=== PATIENT | female | born 2000 | race Hispanic/Latino ===

== ENCOUNTER 2024-11-16 13:28 | Emergency (ER) | payer BC ==
[~2024-11-16] VITALS: Ht 167.6 cm; Wt 97.5 kg
--- NOTE | 2024-11-16 14:23 | ERN ---
ED Note History of Present Illness Stated Complaint: CRAMPING Chief Complaint: Abdominal Pain in Time Seen by MD: 13:36 Dictation: 24-year-old female with a history of PCOS presents to the ED for evaluation of abdominal cramping onset last night. Patient reports she tested positive with a not home yesterday. Patient denies any vaginal bleeding or other associated symptoms at this time. LMP-October 17. A1. Patient just moved to the [place] and does not have an OBGYN or PCP. Allergies: Coded Allergies: No Known Allergies (Unverified Allergy, Unknown, 11/16/24) Past Medical History Past Medical History: Migraines Additional Past Medical Hx: PCOS Surgical History: None LMP: Oct 12, 2024 : 2 Para: 0 Review of System Dictation Constitutional: Negative for fever,chills, and weight loss Eyes: Negative for injury, pain,redness, and discharge ENT: Negative for injury,pain or swelling Cardiovascular: Negative for chest pain, palpitations, and edema Respiratory: Negative for shortness of breath, cough, and wheezing, Abdomen/GI: Positive for abdominal cramping negative for nausea, vomiting, diarrhea, and constipation Back: Negative for injury and pain : Negative for injury, bleeding and discharge MS/Extremity: Negative for injury and deformity Skin: Negative for rash, and discoloration Neuro: Negative for headache, weakness, numbness, tingling, and seizure Psych: Negative for suicide ideation, homicidal ideation, and hallucinations Initial Vital Sign VS Vital Signs Date Time Temp Pulse Resp B/P (MAP) Pulse Ox O2 Delivery O2 Flow Rate FiO2 11/16/24 14:07 98.4 80 16 158/94 99 Room Air 0 Physical Exam Dictation General: awake, alert, NAD Head/Face: Normocephalic, atraumatic Eyes: PERRL, EOMI, vision at baseline ENT: oral cavity clear, TMs clear, no signs of infection Neck: Trachea midline, supple, no nuchal rigidity Cardiovascular: RRR, normal S1/S2, No MRGs, no JVD Respiratory: CTAB, no respiratory distress, No rales or wheezes Abdomen: Soft, non-tender, non-distended, normal bowel sounds, no guarding or rebound. Skin: Warm, dry, normal turgor, no rash MS/Extremity: Pulses equal, no cyanosis, neurovascular intact, FROM Neuro: COAx4, GCS 15, strength 5/5, CN 2-12 intact, normal cerebellar exam, normal gait, Psych: Normal behavior, mood, and affect normal Results (Laboratory/Radiology) Laboratory/Radiology Laboratory Tests Test 11/16/24 14:27 11/16/24 14:28 Urine Color LIGHT-YELLOW (YELLOW) Urine Appearance CLOUDY (CLEAR) H Urine pH 6.0 (5.0-8.0) Urine Specific [place] 1.015 (1.001-1.031) Urine Protein NEGATIVE mg/dL (NEGATIVE) Urine Glucose (UA) NEGATIVE mg/dL (NEGATIVE) Urine Ketones NEGATIVE mg/dL (NEGATIVE) Urine Occult Blood NEGATIVE (NEGATIVE) Urine Nitrate NEGATIVE (NEGATIVE) Urine Bilirubin NEGATIVE mg/dL (NEGATIVE) Urine Urobilinogen 0.2 mg/dL (0.2-1.0) Urine Leukocyte Esterase 25 Rober/uL (NEGATIVE) H White Blood Count 6.9 K/uL (4.8-10.8) Red Blood Count 4.72 MIL/uL (4.00-5.50) Hemoglobin 13.9 g/dL (12.0-16.0) Hematocrit 42.5 % (36-48) Mean Corpuscular Volume 90.0 fL (79-99) Mean Corpuscular Hemoglobin 29.4 pg (27.0-33.0) Mean Corpuscular Hemoglobin Concent 32.7 g/dL (32.0-36.0) Red Cell Distribution Width 12.9 % (11.0-15.5) Platelet Count 293 K/uL (130-400) Mean Platelet Volume 9.7 fL (7.5-10.5) Immature Granulocyte % (Auto) 0.3 % (0-1) Neutrophils (%) (Auto) 60.2 % (40.0-77.0) Lymphocytes (%) (Auto) 34.7 % (21.0-51.0) Monocytes (%) (Auto) 4.1 % (3.0-13.0) Eosinophils (%) (Auto) 0.4 % (0.0-8.0) Basophils (%) (Auto) 0.3 % (0.0-5.0) Neutrophils # (Auto) 4.2 K/uL (1.8-7.7) Lymphocytes # (Auto) 2.4 K/uL (1.0-4.8) Monocytes # (Auto) 0.3 K/uL (0.1-1.0) Eosinophils # (Auto) 0.03 K/uL (0.00-0.70) Basophils # (Auto) 0.02 K/uL (0.00-0.20) Absolute Immature Granulocyte (auto 0.02 K/uL (0-1) Nucleated Red Blood Cells 0.0 % (0.0-0.19) Sodium Level 138 mmol/L (136-145) Potassium Level 3.8 mmol/L (3.5-5.1) Chloride Level 102 mmol/L (101-111) Carbon Dioxide Level 30 mmol/L (21-32) Blood Urea Nitrogen 7 mg/dL (7-18) Creatinine 0.9 mg/dL (0.5-1.0) Glomerular Filtration Rate Calc 92 mL/min (>90) Random Glucose 130 mg/dL (70-105) H Total Calcium 9.1 mg/dL (8.5-10.1) Human Chorionic Gonadotropin, Quant 12 mIU/mL (0-5) H Labs Reviewed?: Yes ED Course ED Course Orders Procedure Category Date Status Time Hcg,Quantitative LAB 11/16/24 Complete 14:13 Urinalysis Profile LAB 11/16/24 In Process 14:13 ,Urine Test LAB 11/16/24 In Process 14:13 Cbc With Differential LAB 11/16/24 Complete 14:13 Basic Metabolic Panel LAB 11/16/24 Complete 14:13 Testing, LAB 11/16/24 Logged Serum Hcg 15:12 Vital Signs Date Time Temp Pulse Resp B/P (MAP) Pulse Ox O2 Delivery O2 Flow Rate FiO2 11/16/24 14:07 98.4 80 16 158/94 99 Room Air 0 Medical Decision Making MDM MDM: Differential diagnosis: 1st trimester , abdominal cramping, threatened Risk of complication and/or morbidity or mortality of patient management: None Medications-Per medication reconciliation Need for hospitalization: Patient does not meet criteria for hospitalization. Need for emergency major/minor surgery: No There are no social concerns with this patient. I independently interpreted the test that were performed, results were reviewed by me and considered findings on radiology if ordered. DX & DISP Disposition: Discharge Departure Impression: Primary Impression: Threatened Condition: Stable Referrals: SELF,REFERRAL (PCP) GABE BIRD MD Nov 16, 2024 14:23
[2024-11-16 14:38] LABS: BASOPHILS # (AUTO) 0.02 K/uL (0.00-0.20); BASOPHILS % (AUTO) 0.3 % (0.0-5.0); EOSINOPHILS # (AUTO) 0.03 K/uL (0.00-0.70); EOSINOPHILS % (AUTO) 0.4 % (0.0-8.0); HEMATOCRIT 42.5 % (36-48); IMMATURE GRANULOCYTE ABSOLUTE 0.02 K/uL (0-1); LYMPHOCYTES # (AUTO) 2.4 K/uL (1.0-4.8); LYMPHOCYTES % (AUTO) 34.7 % (21.0-51.0); MEAN CORPUSCULAR HEMOGLOBIN 29.4 pg (27.0-33.0); MEAN CORPUSCULAR HGB CONC 32.7 g/dL (32.0-36.0); MONOCYTES # (AUTO) 0.3 K/uL (0.1-1.0); MONOCYTES % (AUTO) 4.1 % (3.0-13.0); NEUTROPHILS # (AUTO) 4.2 K/uL (1.8-7.7); NEUTROPHILS % (AUTO) 60.2 % (40.0-77.0); PLATELET COUNT (AUTO) 293 K/uL (130-400); RED BLOOD CELL COUNT(AUTO) 4.72 MIL/uL (4.00-5.50); RED CELL DISTRIBUTION WIDTH 12.9 % (11.0-15.5); WHITE BLOOD COUNT (AUTO) 6.9 K/uL (4.8-10.8)
[2024-11-16 14:47] LABS: CREATININE 0.9 mg/dL (0.5-1.0); POTASSIUM 3.8 mmol/L (3.5-5.1)
[2024-11-16 14:56] LABS: APPEARANCE,URINE CLOUDY (CLEAR); BILIRUBIN,URINE NEGATIVE (NEGATIVE); COLOR,URINE LIGHT-YELLOW (YELLOW); GLUCOSE, URINE (UA) NEGATIVE (NEGATIVE); KETONES,URINE NEGATIVE (NEGATIVE); LEUKOCYTE ESTERASE ,URINE 25 Leu/uL (NEGATIVE); NITRATE,URINE NEGATIVE (NEGATIVE); OCCULT BLOOD,URINE NEGATIVE (NEGATIVE); PROTEIN,URINE NEGATIVE (NEGATIVE); UROBILINOGEN,URINE 0.2 mg/dL (0.2-1.0)
[2024-11-16 14:59] LABS: ADD UA MICROSCOPIC YES
[2024-11-16 15:00] LABS: BACTERIA,URINE RARE /HPF (None Seen); MUCUS,URINE RARE LPF (None Seen); SQUAMOUS EPITHELIAL CELL,UR MOD /HPF (0-2)
[2024-11-16 15:42] LABS: HCG,QUALITATIVE URINE NEGATIVE (NEGATIVE)
[2024-11-16 16:54] VITALS: BP 144/88; PULSE 90; RESP 16; TEMP 98.5; O2SAT 100
== END 2024-11-16 17:01 | disposition home or self-care (01) ==
LOC: EDH 13:28
DX: O20.0 Threatened abortion (principal); Z3A.00 Weeks of gestation of pregnancy not specified
CPT/HCPCS: 36415; 80048; 81001; 81025; 84702; 84703; 85025; 99283

== ENCOUNTER 2024-11-17 13:03 | Emergency (ER) | payer BC ==
[~2024-11-17] VITALS: Ht 167.6 cm; Wt 97.5 kg
--- NOTE | 2024-11-17 13:44 | ERN ---
General Stated Complaint: PER PT POSSIBLE MISCARRIAGE Time Seen by MD: 13:05 Source: patient History of Present Illness Initial Comments Patient is a 24-year-old female coming in to be evaluated for vaginal spotting. Patient was recently evaluated a couple of hours ago but states that she decided to come in low sooner for further evaluation. Patient states he had a quantitative hCG of 12 on last visit and was advised to follow up with PCP for further evaluation. Allergies: Coded Allergies: No Known Allergies (Unverified Allergy, Unknown, 11/16/24) Past Medical History Past Medical History: Migraines Medical History Other: PCOS Past Surgical History: None Female( History) : 2 Para: 0 ROS Dictation CONSTITUTIONAL: No chills, no fever, no weakness, no diaphoresis, no malaise. HEAD/FACE: No signs of trauma. EENT: No eye pain, no blurred vision, no tearing, no double vision, no ear pain, no ear discharge, no nose pain, no nasal congestion, no throat pain, no throat swelling, no mouth pain. RESPIRATORY: No cough, no orthopnea, no SOB, no stridor, no wheezing. CARDIOVASCULAR: No chest pain, no edema, no palpitations, no syncope. GASTROINTESTINAL/ABDOMINAL: No abdominal pain, no constipation, no diarrhea, no nausea, no vomiting. GENITOURINARY: No abnormal discharge, no dysuria, no frequent urination, no hematuria. No complaints of pain in the genitals. MUSCULOSKELETAL: No back pain, no gout, no joint pain, no joint swelling, no muscle pain, no muscle stiffness, no neck pain. INTEGUMENTARY: No change in color, no change in hair/nails, no dryness, no lesion, no lumps, no rash. NEUROLOGICAL/PSYCH: No anxiety, not depressed, no emotional problem, no headache, no numbness, no pre-existing deficit, no history of seizures, no tremors, no weakness. HEMATOLOGIC/LYMPHATIC: Not anemic, no history of blood clots, no apparent bleeding, no bruising, glands not swollen. All Systems Negative, Except as Noted. Physical Exam Physical Exam Dictation VITAL SIGNS: Reviewed. GENERAL APPEARANCE: Alert, oriented x3, no acute distress, obese. HEAD AND FACE: Non-traumatic. EYES: PERRL, pink conjunctivas, eyelid no trauma, anterior chamber clear. EARS: Pinnas intact and no signs of trauma or erythema. Ear canals clear and no discharge. TMs no erythema. NOSE: No discharge, no bleeding. OROPHARYNX: Mouth normal, teeth no caries, tongue pink. Pharynx clear, no erythema. Tonsils no exudates, no abscesses noted. Mucous membrane moist. NECK: Supple, non-tender, no thyromegaly, no masses, no JVD, no bruits. BREAST: Deferred. CHEST: No tenderness, no crepitus, no paradoxical movement, no retractions. LUNGS: Clear, well-ventilated, symmetric, no rales, no wheezing, no rhonchi, no stridor, good breath sounds bilaterally. HEART: Regular rate, regular rhythm, no murmur, no gallops. VASCULAR: No peripheral edema. ABDOMEN: Soft, positive bowel sounds, nondistended, no guarding, nontender, no rebound, no masses no hepatomegaly, no splenomegaly, no Quinn's sign, no hernias. RECTAL: Deferred. GENITAL: Deferred. NEUROLOGICAL: Normal speech, gross motor function intact, gross sensory function intact. MUSCULOSKELETAL: Neck nontender, full range of motion, back nontender, full range of motion. EXTREMITIES: Nontender, full range of motion. SKIN: Color pink, dry, no turgor, no rash, no lacerations, no abrasions, no contusions. LYMPHATICS: Deferred. Results Laboratory and Microbiology Labs Reviewed?: Yes MDM Patient is a 20-year-old female coming in to be evaluated for spotting. Per patient she was recently evaluated but states she has not followed up with her OB. She states he was evaluated a couple hours ago but he was here because she missed in his should what the ER physician told her. Per her recollection she was told that if she continued spotting to come back as soon as possible. Patient states that her spotting has decreased substantially. Patient will be referred to high-risk OB since this is her 2nd threatened miscarriage. ED Course Vital Signs Date Time Temp Pulse Resp B/P (MAP) Pulse Ox O2 Delivery O2 Flow Rate FiO2 11/17/24 13:44 98.2 82 16 162/95 Room Air 0 DX & DISP Disposition: Discharge Departure Impression: Primary Impression: Threatened Condition: Stable Additional Instructions: FOLLOW-UP WITH PRIMARY CARE PROVIDER IN 1 TO 2 DAYS. TAKE MEDICATIONS DIRECTED HERE IN THE EMERGENCY ROOM. OKAY TO CONTINUE HOME MEDICATIONS UNLESS OTHERWISE DISCUSSED DURING YOUR VISIT IN THE EMERGENCY ROOM TODAY. RETURN TO YOUR NEAREST EMERGENCY ROOM IF SYMPTOMS WORSEN OR IF THERE IS NO IMPROVEMENT. CALL 911 IF YOU NEED IMMEDIATE ASSISTANCE. TAKE TYLENOL [id number] NEEDED AND IF NO CONTRAINDICATIONS ARE PRESENT. INCREASE ORAL HYDRATION. A WOUND CULTURE OR URINE CULTURE WAS ORDERED HERE IN THE EMERGENCY ROOM DEPARTMENT PLEASE FOLLOW-UP WITH PRIMARY CARE PROVIDER AND ADVISE THEM TO GET REPEAT PORTS FROM OUR FACILITY. IF YOU HAD ANY JEY WRAP/SPLINTS THAT WERE APPLIED HERE, PLEASE DO NOT REMOVE THEM UNTIL YOU SEE YOUR PRIMARY CARE OR SPECIALTY. REFERRALS: Vanda Patel Md OBKATHIE [address] [facility] [address], [facility] [id number] Referrals: SELF,REFERRAL (PCP) Vanda REZA [address] [facility] [address], [facility] [id number] ROSEMARY MUIR MD Time of Disposition: 15:01 JENNY ARROYO MD Nov 17, 2024 13:44
[2024-11-17 15:45] VITALS: BP 147/89; PULSE 77; RESP 18; TEMP 98; O2SAT 96
--- NOTE | 2024-11-17 15:46 | NUR ---
no heart tone missed
== END 2024-11-17 15:50 | disposition home or self-care (01) ==
LOC: EDH 13:03
DX: O20.0 Threatened abortion (principal); Z3A.00 Weeks of gestation of pregnancy not specified
CPT/HCPCS: 99282; 99283

== ENCOUNTER 2025-08-04 11:33 | Emergency (ER) | payer BC ==
[~2025-08-04] VITALS: Ht 167.6 cm; Wt 76.2 kg
[2025-08-04 11:58] LABS: IMMATURE GRANULOCYTE ABSOLUTE 0.02 K/uL (0-1); NUCLEATED RED BLOOD CELLS 0.0 % (0.0-0.19); PLATELET COUNT (AUTO) 358 K/uL (130-400); RED BLOOD CELL COUNT(AUTO) 4.95 MIL/uL (4.00-5.50); RED CELL DISTRIBUTION WIDTH 12.8 % (11.0-15.5); WHITE BLOOD COUNT (AUTO) 9.9 K/uL (4.8-10.8)
[2025-08-04] MEDS: 0.9%NACL 1000ML 1,000 ML IV SCH (12:08)
[2025-08-04 12:19] LABS: ASPARTATE AMINOTRANSFERASE 19.0 U/L (10-37); CREATININE 0.9 mg/dL (0.5-1.0); GLOMERULAR FILTR. RATE CALC 91.0 mL/min (>90); GLUCOSE,RANDOM 111.0 mg/dL (70-105); HCG,QUANTITATIVE 0.0 mIU/mL (0-5); SODIUM SERUM 140.0 mmol/L (136-145); TOTAL PROTEIN, SERUM 8.4 g/dL (6.0-8.3); UREA NITROGEN, BLOOD 11.0 mg/dL (7-18)
[2025-08-04 12:30] LABS: APPEARANCE,URINE CLEAR (CLEAR); GLUCOSE, URINE (UA) NEGATIVE (NEGATIVE); LEUKOCYTE ESTERASE ,URINE 75 Leu/uL (NEGATIVE); NITRATE,URINE NEGATIVE (NEGATIVE); OCCULT BLOOD,URINE +- (TRACE) (NEGATIVE)
[2025-08-04 12:40] LABS: ADD UA MICROSCOPIC YES
[2025-08-04 12:44] LABS: SQUAMOUS EPITHELIAL CELL,UR MOD /HPF (0-2)
--- NOTE | 2025-08-04 14:20 | HMCIMG ---
EXAM: CT Abdomen and Pelvis Without IV contrast CLINICAL HISTORY: right flank pain TECHNIQUE: Axial computed tomography images of the abdomen and pelvis without intravenous contrast. CONTRAST: No IV contrast. COMPARISON: None provided. FINDINGS: LUNG BASES: The lung bases appear clear. No pleural effusions are seen. LIVER: Unremarkable. GALLBLADDER AND BILE DUCTS: The gallbladder appears within normal limits. No radioopaque gallstones are seen. No biliary ductal dilatation is evident. PANCREAS: Unremarkable. SPLEEN: Unremarkable. ADRENAL GLANDS: Unremarkable. KIDNEYS, URETERS, AND BLADDER: The kidneys appear within normal limits. Multiple small non-obstructive calculi in both kidneys, the largest in the right kidney measures approximately 2.4 mm The largest in the left kidney measures approximately 2.3 mm Mild hydronephrosis on the right side STOMACH AND BOWEL: Unremarkable appearance of the stomach and bowel. No evidence of bowel obstruction. No evidence suggesting enteritis or colitis. APPENDIX: No evidence of acute appendicitis on CT examination. PERITONEUM: No free fluid. No free air. LYMPH NODES: No lymphadenopathy is evident. REPRODUCTIVE: Iso to subtle hyperdense areas in the left ovary measure approx 3.2 x 3 cm, Advise USG correlation VASCULATURE: No evidence of abdominal aortic aneurysm. BONES: No aggressive appearing osseous lesion. No acute osseous pathology evident. IMPRESSION: 1. Multiple small non-obstructive renal calculi bilaterally with mild right-sided hydronephrosis. 2. Left ovarian lesion measuring 3.2 x 3 cm, recommend ultrasound correlation. /[place]
--- NOTE | 2025-08-04 14:27 | ERN ---
ED Note History of Present Illness Stated Complaint: RT ABD PAIN Chief Complaint: Abdominal Pain Time Seen by MD: 11:35 Time Seen by Midlevel: 11:36 Dictation: 25-year-old female with no past medical history coming in with complaints of flank pain started on the left and nose in the right side radiating to the right lower quadrant. Patient states it has been going on for the last couple of days with nausea. Denies any vomiting fever, and states she does have some dysuria. States she has been told in the past that she has a very small kidney stones. Allergies: Coded Allergies: No Known Allergies (Unverified Allergy, Unknown, 11/16/24) Past Medical History Past Medical History: Constipation, Depression, Migraines, Ovarian Cyst Additional Past Medical Hx: PCOS Surgical History: None LMP: Jul 21, 2025 : 2 Para: 0 Review of System Dictation Constitutional: Negative for fever,chills, and weight loss Eyes: Negative for injury, pain,redness, and discharge ENT: Negative for injury,pain or swelling Cardiovascular: Negative for chest pain, palpitations, and edema Respiratory: Negative for shortness of breath, cough, and wheezing, Abdomen/GI: Negative for abdominal pain, nausea, vomiting, diarrhea, and constipation Back: Negative for injury and pain : Dysuria, right flank pain MS/Extremity: Negative for injury and deformity Skin: Negative for rash, and discoloration Neuro: Negative for headache, weakness, numbness, tingling, and seizure Psych: Negative for suicide ideation, homicidal ideation, and hallucinations Review of Systems: was completed Initial Vital Sign VS Vital Signs Date Time Temp Pulse Resp B/P (MAP) Pulse Ox O2 Delivery O2 Flow Rate FiO2 08/04/25 11:35 99.0 84 18 162/96 100 Room Air 0 08/04/25 12:20 21 Physical Exam Dictation General: awake, alert, NAD Head/Face: Normocephalic, atraumatic Eyes: PERRL, EOMI, vision at baseline ENT: oral cavity clear, TMs clear, no signs of infection Neck: Trachea midline, supple, no nuchal rigidity Cardiovascular: RRR, normal S1/S2, No MRGs, no JVD Respiratory: CTAB, no respiratory distress, No rales or wheezes Abdomen: Soft, non-tender, non-distended, normal bowel sounds, no guarding or rebound. Skin: Warm, dry, normal turgor, no rash MS/Extremity: Pulses equal, no cyanosis, neurovascular intact, FROM Neuro: COAx4, GCS 15, strength 5/5, CN 2-12 intact, normal cerebellar exam, n ormal gait, Psych: Normal behavior, mood, and affect normal Results (Laboratory/Radiology) Laboratory/Radiology Laboratory Tests Test 08/04/25 11:50 08/04/25 12:13 White Blood Count 9.9 K/uL (4.8-10.8) Red Blood Count 4.95 MIL/uL (4.00-5.50) Hemoglobin 14.5 g/dL (12.0-16.0) Hematocrit 42.9 % (36-48) Mean Corpuscular Volume 86.7 fL (79-99) Mean Corpuscular Hemoglobin 29.3 pg (27.0-33.0) Mean Corpuscular Hemoglobin Concent 33.8 g/dL (32.0-36.0) Red Cell Distribution Width 12.8 % (11.0-15.5) Platelet Count 358 K/uL (130-400) Mean Platelet Volume 9.3 fL (7.5-10.5) Immature Granulocyte % (Auto) 0.2 % (0-1) Neutrophils (%) (Auto) 70.9 % (40.0-77.0) Lymphocytes (%) (Auto) 23.6 % (21.0-51.0) Monocytes (%) (Auto) 4.5 % (3.0-13.0) Eosinophils (%) (Auto) 0.6 % (0.0-8.0) Basophils (%) (Auto) 0.2 % (0.0-5.0) Neutrophils # (Auto) 7.0 K/uL (1.8-7.7) Lymphocytes # (Auto) 2.4 K/uL (1.0-4.8) Monocytes # (Auto) 0.5 K/uL (0.1-1.0) Eosinophils # (Auto) 0.06 K/uL (0.00-0.70) Basophils # (Auto) 0.02 K/uL (0.00-0.20) Absolute Immature Granulocyte (auto 0.02 K/uL (0-1) Nucleated Red Blood Cells 0.0 % (0.0-0.19) Sodium Level 140 mmol/L (136-145) Potassium Level 4.3 mmol/L (3.5-5.1) Chloride Level 103 mmol/L (101-111) Carbon Dioxide Level 30 mmol/L (21-32) Blood Urea Nitrogen 11 mg/dL (7-18) Creatinine 0.9 mg/dL (0.5-1.0) Glomerular Filtration Rate Calc 91 mL/min (>90) Random Glucose 111 mg/dL (70-105) H Total Calcium 9.2 mg/dL (8.5-10.1) Total Bilirubin 0.3 mg/dL (0.2-1.0) Direct Bilirubin 0.1 mg/dL (0.0-0.3) Aspartate Amino Transf (AST/SGOT) 19 U/L (10-37) Alanine Aminotransferase (ALT/SGPT) 29 U/L (12-78) Alkaline Phosphatase 87 U/L (50-136) Total Protein 8.4 g/dL (6.0-8.3) H Albumin 4.2 g/dL (3.5-5.0) Lipase 185 U/L (16-77) H Human Chorionic Gonadotropin, Quant 0 mIU/mL (0-5) Urine Color LIGHT-YELLOW (YELLOW) Urine Appearance CLEAR (CLEAR) Urine pH 8.0 (5.0-8.0) Urine Specific [place] 1.016 (1.001-1.031) Urine Protein NEGATIVE mg/dL (NEGATIVE) Urine Glucose (UA) NEGATIVE mg/dL (NEGATIVE) Urine Ketones NEGATIVE mg/dL (NEGATIVE) Urine Occult Blood +- (TRACE) (NEGATIVE) H Urine Nitrate NEGATIVE (NEGATIVE) Urine Bilirubin NEGATIVE mg/dL (NEGATIVE) Urine Urobilinogen 0.2 mg/dL (0.2-1.0) Urine Leukocyte Esterase 75 Rober/uL (NEGATIVE) H Urine RBC 11-25 /HPF (0-1) H Urine WBC 11-25 /HPF (0-1) H Urine Squamous Epithelial Cells MOD /HPF (0-2) Urine Bacteria Rare /HPF (None Seen) Labs Reviewed?: Yes Ultrasound Comment: [place] [id number] [place] [address] IMAGING REPORT Signed PATIENT: ARCENIO WONG MR#: [id number] : 2000 SEX: F AGE: 25 LOCATION: [facility] ORDER 26 STATUS: REG ER REPORT#: [id number] SERVICE 24 REASON: left ovarian lesion on ct scan ORDERING PHYSICIAN: MARCUS HALEY CNP PROCEDURE: PELVCOMP - US PELVIC NON-OB COMP EXAM: US Pelvis, Complete Transvaginal and Transabdominal COMPARISON: None provided. CLINICAL HISTORY: left ovarian lesion on ct scan TECHNIQUE: Transvaginal and transabdominal pelvic ultrasound (complete) with image documentation. FINDINGS: ENDOMETRIUM: Normal thickness. Endometrial thickness is 2 mm UTERUS/CERVIX: The uterus appears within normal limits. No uterine fibroid or other mass evident. RIGHT OVARY: Normal Doppler flow. No abnormal mass. LEFT OVARY: Normal Doppler flow. No abnormal mass. FREE FLUID: No free fluid. IMPRESSION: Unremarkable pelvic ultrasound. /[place] DICTATED BY: MONICA ORLANDO MD DATE: 08/04/251738 ELECTRONICALLY SIGNED BY: MONICA ORLANDO MD DATE: 08/04/251738 CT Scan Comment: [place] [address] IMAGING REPORT Signed PATIENT: ARCENIO WONG MR#: [id number] : 2000 SEX: F AGE: 25 LOCATION: [facility] ORDER 1305 STATUS: REG ER REPORT#: [id number] SERVICE 130 REASON: right flank pain ORDERING PHYSICIAN: MARCUS HALEY CNP PROCEDURE: ABD PEL WO - CT ABDOMEN/PELVIS W/O CONTRAST EXAM: CT Abdomen and Pelvis Without IV contrast CLINICAL HISTORY: right flank pain TECHNIQUE: Axial computed tomography images of the abdomen and pelvis without intravenous contrast. CONTRAST: No IV contrast. COMPARISON: None provided. FINDINGS: LUNG BASES: The lung bases appear clear. No pleural effusions are seen. LIVER: Unremarkable. GALLBLADDER AND BILE DUCTS: The gallbladder appears within normal limits. No radioopaque gallstones are seen. No biliary ductal dilatation is evident. PANCREAS: Unremarkable. SPLEEN: Unremarkable. ADRENAL GLANDS: Unremarkable. KIDNEYS, URETERS, AND BLADDER: The kidneys appear within normal limits. Multiple small non-obstructive calculi in both kidneys, the largest in the right kidney measures approximately 2.4 mm The largest in the left kidney measures approximately 2.3 mm Mild hydronephrosis on the right side STOMACH AND BOWEL: Unremarkable appearance of the stomach and bowel. No evidence of bowel obstruction. No evidence suggesting enteritis or colitis. APPENDIX: No evidence of acute appendicitis on CT examination. PERITONEUM: No free fluid. No free air. LYMPH NODES: No lymphadenopathy is evident. REPRODUCTIVE: Iso to subtle hyperdense areas in the left ovary measure approx 3.2 x 3 cm, Advise USG correlation VASCULATURE: No evidence of abdominal aortic aneurysm. BONES: No aggressive appearing osseous lesion. No acute osseous pathology evident. IMPRESSION: 1. Multiple small non-obstructive renal calculi bilaterally with mild right-sided hydronephrosis. 2. Left ovarian lesion measuring 3.2 x 3 cm, recommend ultrasound correlation. /[place] DICTATED BY: LASHELL WEBB Jr., MD DATE: 08/04/251519 ELECTRONICALLY SIGNED BY: LASHELL WEBB Jr., MD DATE: 08/04/251519 ED Course ED Course Orders Procedure Category Date Status Time Cbc With Differential LAB 08/04/25 Complete 11:45 Basic Metabolic Panel LAB 08/04/25 Complete 11:45 Urinalysis Profile LAB 08/04/25 Complete 11:45 Hepatic Function Panel LAB 08/04/25 Complete 11:45 Lipase LAB 08/04/25 Complete 11:45 0.9%Nacl 1000ml (Ns PHA 08/04/25 In Process 1000ml) 12:00 Ondansetron 4mg Inj PHA 08/04/25 Complete (Zofran 4mg Inj) 12:00 Hcg,Quantitative LAB 08/04/25 Complete 11:45 Morphine 2mg Syg PHA 08/04/25 Complete (Morphine 2mg Syg) 12:00 Culture Urine NEGAR 08/04/25 In Process 12:40 Ketorolac PHA 08/04/25 Complete Tromethamine 30mg/Ml 13:00 Ct Abdomen/Pelvis W/O CT 08/04/25 Resulted Contrast 13:04 Us Pelvic Non-Ob Comp US 08/04/25 Resulted 14:25 Morphine 4mg Syg PHA 08/04/25 Complete (Morphine 4mg Syg) 16:00 Ceftriaxone 1g Vial PHA 08/04/25 Complete (Rocephine 1g Inj) 16:30 Current Medications Medications (Trade) Dose Ordered Sig/Jeevan Route PRN Reason Start Time Stop Time Status Last Admin Dose Admin Ceftriaxone Sodium (ROCEphine 1G INJ) 1 gm ONCE ONCE IVPB 08/04/25 16:30 08/04/25 16:31 DC 08/04/25 16:12 Ketorolac Tromethamine (toRADol) 30 mg ONCE ONCE IVP 08/04/25 13:00 08/04/25 13:01 DC 08/04/25 12:51 Morphine Sulfate (morPHINE 2MG SYG) 2 mg ONCE ONCE IVP 08/04/25 12:00 08/04/25 12:01 DC 08/04/25 12:05 Morphine Sulfate (morPHINE 4MG SYG) 4 mg ONCE ONCE IVP 08/04/25 16:00 08/04/25 16:01 DC 08/04/25 16:12 Ondansetron HCl (zoFRAN 4MG INJ) 4 mg ONCE ONCE IVP 08/04/25 12:00 08/04/25 12:01 DC 08/04/25 12:05 Sodium Chloride 1,000 ml @ 100 mls/hr Q10H IV 08/04/25 12:00 09/03/25 11:59 08/04/25 12:08 Vital Signs Date Time Temp Pulse Resp B/P (MAP) Pulse Ox O2 Delivery O2 Flow Rate FiO2 08/04/25 12:20 98.4 67 25 141/82 100 Room Air* 0 21 08/04/25 11:35 99.0 84 18 162/96 100 Room Air 0 Medical Decision Making MDM MDM: 25-year-old female with no past medical history coming in with complaints of flank pain started on the left and nose in the right side radiating to the right lower quadrant. Patient states it has been going on for the last couple of days with nausea. Denies any vomiting fever, and states she does have some dysuria. States she has been told in the past that she has a very small kidney stones. Differential diagnosis: Kidney stone, urinary tract infection, pyelonephritis, appendicitis, ectopic Rationale: Tests considered and ordered secondary to shared decision making include: Previous outside records reviewed: Old ER visits. Risk of complication and/or morbidity or mortality of patient management: None Medications-Per medication reconciliation Need for hospitalization: Patient does not meet criteria for hospitalization. Need for emergency major/minor surgery: No There are no social concerns with this patient. Prescription drug management Prescriptions will include symptomatic care Patient's prior external medical records from other ER visits were reviewed by me as indicated. Prior testing and results from previous visits were reviewed. Prior tests were taken into account with medical decision making and resource utilization, independent historian/historians were used to obtain complete medical history. I independently interpreted the test that were performed, results were reviewed by me and considered findings on radiology if ordered. Medical management and examination interpretation discussions were had by me with other qualified healthcare professionals as indicated for the patient's care. DX & DISP Disposition: AMA Departure Impression: Primary Impression: Cystitis, acute hemorrhagic Additional Impressions: Kidney calculus, Renal colic, bilateral Condition: Stable Scripts Phenazopyridine HCl (Pyridium) 200 Mg Tablet 200 MG PO TID for painful urination, #10 TAB 0 Refills Prov: MARCUS HALEY CNP 08/04/25 Ketorolac Tromethamine (Ketorolac Tromethamine) 10 Mg Tablet 1 TAB PO Q6HPRN PRN for pain for 5 Days, #20 TAB 0 Refills Prov: MARCUS HALEY CNP 08/04/25 Nitrofurantoin Monohyd/M-Cryst (Macrobid 100 mg Capsule) 100 Mg Capsule 1 CAP PO BID for 7 Days, #14 CAP 0 Refills Prov: MARCUS HALEY CNP 08/04/25 Additional Instructions: Follow up with your primary care provider. Return to the hospital if you develop any fever, back pain, nausea or vomiting. Referrals: SELF,REFERRAL (PCP) Time of Disposition: 16:57 I have reviewed the case, and I agree with, Diagnosis and Plan MARCUS AHLEY CNP Aug 04, 2025 14:27
--- NOTE | 2025-08-04 16:40 | HMCIMG ---
EXAM: US Pelvis, Complete Transvaginal and Transabdominal COMPARISON: None provided. CLINICAL HISTORY: left ovarian lesion on ct scan TECHNIQUE: Transvaginal and transabdominal pelvic ultrasound (complete) with image documentation. FINDINGS: ENDOMETRIUM: Normal thickness. Endometrial thickness is 2 mm UTERUS/CERVIX: The uterus appears within normal limits. No uterine fibroid or other mass evident. RIGHT OVARY: Normal Doppler flow. No abnormal mass. LEFT OVARY: Normal Doppler flow. No abnormal mass. FREE FLUID: No free fluid. IMPRESSION: Unremarkable pelvic ultrasound. /[place]
[2025-08-04] MEDS ORDERED: NITR100C4 PO (16:58)
[2025-08-04] MEDS ORDERED: PHEN-776 PO (16:58)
[2025-08-04] MEDS ORDERED: KETO10TA2 PO (16:58)
[2025-08-04 17:35] VITALS: BP 132/77; PULSE 68; RESP 18; TEMP 98.4; O2SAT 99
[2025-08-08] MEDS ORDERED: CEPH500B PO (09:28)
[2025-08-08] MEDS ORDERED: ONDA-104 PO (09:35)
== END 2025-08-04 17:36 | disposition home or self-care (01) ==
LOC: EDH 11:33
DX: N30.01 Acute cystitis with hematuria (principal); N20.0 Calculus of kidney
CPT/HCPCS: 99285; 74176; 96365; 96375; 76856; 96361; 80076; 80048; 84702; 83690; 85025; 87086 ×2; 87186; 81001; 36415; 96376; J1885; J2270 ×2; J7030; J0696; J2405